=== PATIENT | female | born 1945 | race Caucasian/White ===

== ENCOUNTER → 2021-03-03 | Outpatient (CLI) | payer OTHER ==
[~2021-03-03] MED LIST: ASPIRIN EC81 M1 PO; COLLAGENASE1 EACH PO; COZAAR 25 MG TA25 M2 PO; IPRATROPIUM BRO30 ML NASAL; LASIX 20 MG TAB20 MG PO; LEVO-T100 MCG PO; TOPROL XL25 MG PO; VITAMIN D31250 MCG PO; WARFARIN SODIUM5 MG PO
[2021-03-03 11:53] LABS: HEMATOCRIT 40.2 % (37.0-47.0); HEMOGLOBIN 13.1 gm/dL (12.0-15.0); MCH 29.7 pg (26.0-34.0); MCHC 32.5 g/dL (28.0-37.0); MCV 91.3 fL (80.0-100.0); RBC 4.4 mil/uL (4.20-5.00); RDW 14.7 % (10.5-14.5); WBC 8.2 thou/uL (4.0-11.0)
[2021-03-03 11:58] LABS: APTT 37.8 Seconds (24.5-32.8); INR 2.25; PROTIME 23.6 Seconds (10.5-12.1); URINE BILIRUBIN NEGATIVE (Negative); URINE BLOOD TRACE (Negative); URINE CLARITY CLEAR; URINE COLOR YELLOW; URINE GLUCOSE-RANDOM* NEGATIVE (Negative); URINE KETONES NEGATIVE (Negative); URINE NITRITE-REFLEX NEGATIVE (Negative); URINE PROTEIN (DIPSTICK) NEGATIVE (Negative); URINE SPECIFIC GRAVITY 1.015 (1.005-1.035); URINE UROBILINOGEN 0.2 E.U./dl (0.2-1.0)
[2021-03-03 11:59] LABS: ALBUMIN 3.7 g/dL (3.4-5.0); CREATININE 0.9 mg/dL (0.6-1.0); POTASSIUM 4.3 mmol/L (3.5-5.1); TOTAL BILIRUBIN 0.5 mg/dL (0.2-1.0); TOTAL PROTEIN 6.6 g/dL (6.4-8.2); URINE LEUKOCYTES-REFLEX 2+ (Negative)
[2021-03-03 12:09] LABS: SQUAMOUS 4-10 Moderate /LPF (0-3); URINE WBC-REFLEX 0-5 Rare /HPF (0-5)
[2021-03-03 12:10] LABS: BACTERIA-REFLEX 1-9 Few /HPF (None Seen); CASTS None Seen /LPF (None Seen); CRYSTALS None Seen /LPF (None Seen); URINE RBC 1-2 Rare /HPF (NONE SEEN)
--- NOTE | 2021-03-03 16:05 | EKG ---
[place] [address] [facility] [place] [address] ELECTROCARDIOGRAM REPORT Name: REYNA SMITH Room [facility]: [facility] [id number] Admission: 03/03/21 Attend Phys: Amadeo Mckeon Discharge: Date of : 47 Report #: [id number] [facility] Test Date: 2021-03-03 Test Time: 11:41:23 Pat Name: REYNA SMITH Department: Room: Gender: F Sign Fabricator: BARBER : 1945 Requested By: Amadeo Mckeon Order Number: [id number] MD: Shade Dawkins Measurements Intervals [place] Rate: 65 P: 69 NV: 154 QRS: 19 QRSD: 95 T: 10 QT: 414 QTc: 431 Interpretive Statements Sinus rhythm Borderline low voltage, extremity leads No previous ECG available for comparison Electronically Signed On 03-03-2021 16:05:10 [employer] by Shade Dawkins [email or web address] <ELECTRONICALLY SIGNED> By: Shade Dawkins MD, [facility] 03/03/21 1605 1141 1141 Shade Dawkins MD, FACC /EPI
== END ==
LOC: EDBD → PAC 09:11
PROVIDERS: Student in an Organized Health Care Education/Training Program; ATTEND Orthopaedic Surgery
DX: Z01.812 Encounter for preprocedural laboratory examination (principal); M25.561 Pain in right knee; J44.9 Chronic obstructive pulmonary disease, unspecified; Z20.822 Contact with and (suspected) exposure to COVID-19